=== PATIENT | female | born 1955 | race Caucasian/White ===

== ENCOUNTER 2021-07-21 09:20 | Emergency (ER) | payer OTHER ==
[2021-07-21] MEDS ORDERED: predniSONE 20 MG TAB ONE (10:08)
[2021-07-21] MEDS ORDERED: Ketorolac Tromethamine 30 MG/ML VIAL ONE (10:08)
== END 2021-07-21 10:20 | disposition home or self-care (01) ==
LOC: MADERS 09:20
DX: M54.42 Lumbago with sciatica, left side (principal); F17.210 Nicotine dependence, cigarettes, uncomplicated; Z79.899 Other long term (current) drug therapy
CPT/HCPCS: 96372; 99283; J1885; J7512